=== PATIENT | female | born 1955 | race Caucasian/White ===

== ENCOUNTER → 2019-04-27 09:00 | Outpatient (CLI) | payer MEDICARE | END | disposition home or self-care (01) | LOC: D.MAMMO 09:00 | PROVIDERS: ATTEND Family Medicine | DX: Z12.31 Encounter for screening mammogram for malignant neoplasm of breast (principal) ==

== ENCOUNTER 2019-05-31 09:00 | Outpatient (CLI) | payer MEDICARE | END 2019-05-31 10:00 | disposition home or self-care (01) | LOC: D.MAMMO 09:00 | PROVIDERS: ATTEND Family Medicine | DX: R92.8 Other abnormal and inconclusive findings on diagnostic imaging of breast (principal) ==

== ENCOUNTER → 2019-07-19 15:10 | Outpatient (CLI) | payer MEDICARE ==
[2019-07-21 10:11] LABS: ANGIOTENSIN CONVERTING ENZYME 29 U/L (14-82)
== END | disposition home or self-care (01) ==
LOC: D.LAB 13:00 → D.RT 15:30
PROVIDERS: ATTEND Internal Medicine Pulmonary Disease
DX: J44.9 Chronic obstructive pulmonary disease, unspecified (principal); R91.8 Other nonspecific abnormal finding of lung field

== ENCOUNTER → 2020-09-20 10:53 | Outpatient (CLI) | payer MEDICARE ==
[2020-07-10 07:18] VITALS: BMI 29.0
[~2020-09-20 10:53] MED LIST: ALBUTEROL0.63 MG/3 INH; ALBUTEROL2.5 MG/3 M INH; AMBIEN5 MG PO; BREO ELLIPTA 11 EACH INH; COMBIVENT RESPIM4 GM INH; COZAAR50 MG PO; FIBERCON625 MG PO; FUROSEMIDE20 MG PO; HYDROCODON-ACE1 EA10 PO; LIPITOR20 MG PO; LISINOPRIL40 MG PO; OMEPRAZOLE CAP 20M PO; SINGULAIR10 MG PO
[2020-09-20 11:32] LABS: CALC OSMOLALITY 280 mosm/kg (275-300); CALCIUM 9.1 mg/dL (8.5-10.1); CARBON DIOXIDE 31.9 mmol/L (21.0-32.0); CHLORIDE - SERUM 104 mmol/L (98-107); CREATININE - SERUM 0.8 mg/dL (0.6-1.3); GLUCOSE 99 mg/dL (74-106); POTASSIUM - SERUM 4.2 mmol/L (3.5-5.1); PRO BNP 96 pg/mL (0-125); SODIUM 141 mmol/L (136-145); UREA NITROGEN 13 mg/dL (7-18); eGFR NON AFRICAN AMERICAN 76 mL/min (90-120)
== END | disposition home or self-care (01) ==
LOC: D.LAB 10:45 → D.CT 11:00
PROVIDERS: ATTEND Internal Medicine Pulmonary Disease
DX: J44.9 Chronic obstructive pulmonary disease, unspecified (principal)

== ENCOUNTER → 2020-09-26 13:09 | Outpatient (CLI) | payer MEDICARE ==
[2020-07-10 07:18] VITALS: BMI 29.0
== END | disposition home or self-care (01) ==
LOC: D.RAD 13:00
PROVIDERS: ATTEND Internal Medicine Gastroenterology
DX: R11.0 Nausea (principal); R13.10 Dysphagia, unspecified; K21.9 Gastro-esophageal reflux disease without esophagitis

== ENCOUNTER → 2020-10-24 10:49 | Outpatient (CLI) | payer MEDICARE ==
[2020-07-10 07:18] VITALS: BMI 29.0
== END | disposition home or self-care (01) ==
LOC: D.RT 10:49
PROVIDERS: ATTEND Internal Medicine Pulmonary Disease
DX: J44.9 Chronic obstructive pulmonary disease, unspecified (principal); Z11.52 Encounter for screening for COVID-19